=== PATIENT | male | born 1970 | race Caucasian/White ===

== ENCOUNTER 2019-05-01 00:53 | Emergency (ER) | payer SELFPAY ==
[~2019-05-01] VITALS: Ht 172.7 cm; Wt 75.3 kg
--- NOTE | 2019-05-01 01:11 | NUR ---
Dr. Dejesus at bedside for MSE.
[2019-05-01] MEDS ORDERED: NITROGLYCERIN 0.4 MG/TAB BOTTLE SL ONE ×2 (01:15→01:22)
[2019-05-01] MEDS ORDERED: ASPIRIN 325 MG TABLET PO ONE (01:15)
[2019-05-01] MEDS ORDERED: ASPIRIN 325 MG TABLET ONE (01:22)
--- NOTE | 2019-05-01 01:25 | NUR ---
Pt observed having a seizure, notified.
[2019-05-01 01:27] LABS: BASOPHILS % (AUTO) 0.3 % (0.0-2.0); EOSINOPHILS % (AUTO) 0.5 % (0.0-7.0); HEMATOCRIT 43.1 % (36.7-47.1); HEMOGLOBIN 14.6 g/dL (12.5-16.3); LYMPHOCYTES # (AUTO) 2.6 K/uL (20.0-40.0); LYMPHOCYTES % (AUTO) 36.9 % (20.5-51.5); MEAN CORPUSCULAR HEMOGLOBIN 32.5 uug (23.8-33.4); MEAN CORPUSCULAR HGB CONC 34 g/dL (32.5-36.3); MEAN CORPUSCULAR VOLUME 96.2 fL (73.0-96.2); MONOCYTES # (AUTO) 0.4 K/uL (2.0-10.0); MONOCYTES % (AUTO) 5.9 % (0.0-11.0); NEUTROPHILS % (AUTO) 56.4 % (38.5-71.5); PLATELET COUNT (AUTO) 216 K/uL (152-348); RED BLOOD CELL COUNT(AUTO) 4.49 MIL/uL (4.06-5.63)
[2019-05-01] MEDS ORDERED: PANTOPRAZOLE SODIUM IV 40 MG in IV DEXTROSE 5% 100 ML IV ONE (01:30)
[2019-05-01] MEDS ORDERED: PANTOPRAZOLE SODIUM 40 MG VIAL IV ONE (01:30)
[2019-05-01] MEDS ORDERED: LORAZEPAM 2 MG/1 ML VIAL IV ONE (01:30)
[2019-05-01] MEDS ORDERED: LORAZEPAM 2 MG/1 ML VIAL ONE (01:31)
[2019-05-01] MEDS ORDERED: PANTOPRAZOLE SODIUM 40 MG VIAL ONE (01:31)
[2019-05-01 01:35] LABS: POTASSIUM 3.3 mmol/L (3.5-5.1)
--- NOTE | 2019-05-01 01:43 | NUR ---
Pt refusing meds, states the seizure was really intense and he just wants time to settle down first. Medications held.
--- NOTE | 2019-05-01 01:46 | NUR ---
Pt assisted to bathroom, no falls noted.
[2019-05-01 01:48] LABS: BILIRUBIN,DIRECT 0.2 mg/dL (0.0-0.2); BILIRUBIN,TOTAL 0.8 mg/dL (0.2-1.0); TOTAL PROTEIN, SERUM 7.2 g/dL (6.4-8.2)
--- NOTE | 2019-05-01 01:48 | NUR ---
Pt out of ER for CT.
--- NOTE | 2019-05-01 01:59 | NUR ---
Pt back to ER from CT.
--- NOTE | 2019-05-01 02:35 | NUR ---
Pt out of ER for CT abd.
--- NOTE | 2019-05-01 02:44 | NUR ---
Pt back to ER from CT
--- NOTE | 2019-05-01 03:23 | NUR ---
Patient given written and verbal discharge instructions. Patient verbalizes understanding of instructions. Patient is ambulatory with steady gait. Refuses offer of [facility] placement. Patient given list of available shelters in surrounding area. Pt provided hospital sandwich per patient request, VSS, no acute signs of distress, all belongings taken, IV site discontinued, Pt states will arrange own transportation.
[2019-05-01 03:25] VITALS: BP 110/65
== END 2019-05-01 03:25 | disposition home or self-care (01) ==
LOC: ER 00:58
DX: R07.89 Other chest pain (principal); Z59.0 Homelessness
CPT/HCPCS: 36415; 70030-TC; 70450; 71045; 85025; 85730; 93005; A4663; C9113; J2060